=== PATIENT | female | born 2000 | race Caucasian/White ===

== ENCOUNTER 2020-06-10 00:47 | Emergency (ER) | payer OTHER ==
[~2020-06-10] VITALS: Ht 172.7 cm; Wt 81.6 kg
[2020-06-10] MEDS ORDERED: LIDOCAINE VISC 2% SOLN 15 ML UDC ONE (01:01)
--- NOTE | 2020-06-10 01:08 | NUR ---
TRANSFER INITIATED TO [facility], SPOKE TO [place] KC RN
[2020-06-10 01:32] LABS: BASOPHILS # (AUTO) 0.1 (0.0-0.1); BASOPHILS % 0.5 % (0.0-1.0); EOSINOPHILS # (AUTO) 0.1 (0.0-0.4); EOSINOPHILS % 0.6 % (0.0-6.0); HEMOGLOBIN 12.9 g/dL (12.0-16.0); LYMPHOCYTES # (AUTO) 4.3 (1.0-3.2); LYMPHOCYTES % 29.7 % (18.0-39.1); MEAN CORPUSCULAR HEMOGLOBIN 27.8 pg (28-32); MEAN CORPUSCULAR HGB CONC 31.5 g/dL (31-35); MEAN CORPUSCULAR VOLUME 88.4 fL (81-99); MONOCYTES # (AUTO) 0.7 (0.2-0.8); NEUTROPHILS # (AUTO) 9.3 (2.1-6.9); NEUTROPHILS % 63.8 % (38.7-80.0); PLATELET COUNT 471 x10e3/uL (140-360); RED BLOOD COUNT 4.64 x10e6/uL (3.6-5.1)
--- NOTE | 2020-06-10 01:34 | Emergency Department Note ---
History of Present Illnes History of Present Illness Chief Complaint: Eye, Ear, Nose, Throat, Dental History of Present Illness This is a 19 year old female Chief Complaint Comment 19 Y/O FEMALE PT AAOX3 REPORTS SYNCOPE EPISODE APPROX 30 MINUTES AGO AND STRUCK MOUTH ON SIDE OF SHOWER; LEFT CENTRAL INCISOR TO UPPER JAW ABSENT, RIGHT CENTRAL INCISOR NOTED WITH IMPACTION TO LOWER JAW; 1 CM LACERATION NOTED TO BOTTOM LIP X2. Historian: Patient Arrival Mode: Car [employer] Required: No Onset (how long ago): minute(s) (15) Location: Teeth Quality: Subluxed Radiation: Reports non-radiation Severity: moderate Onset quality: sudden Duration (how long): hour(s) (1) Timing of current episode: constant Progression: unchanged Chronicity: new Context: Denies recent illness, Denies recent surgery Relieving factors: none Exacerbating factors: none Associated symptoms: Reports denies other symptoms Treatments prior to arrival: none Past Medical/Family History Physician Review I have reviewed the patient's past medical and family history. Any updates have been documented here. Past Medical History Recent Fever: No Clinical Suspicion of Infectio: No New/Unexplained Change in Ment: No Past Medical History: None Past Surgical History: None Review of Systems Review of Systems Constitutional: Reports no symptoms EENTM: Reports as per HPI, Reports mouth pain Cardiovascular: Reports no symptoms Respiratory: Reports no symptoms Gastrointestinal: Reports no symptoms Genitourinary: Reports no symptoms Musculoskeletal: Reports no symptoms Integumentary: Reports no symptoms Neurological: Reports no symptoms Psychological: Reports no symptoms Endocrine: Reports no symptoms Hematological/Lymphatic: Reports no symptoms Physical Exam Related Data Allergies: Coded Allergies: No Known Allergies (Unverified , 06/10/20) Triage Vital Signs Vital Signs Date Time Temp Pulse Resp B/P (MAP) Pulse Ox O2 Delivery O2 Flow Rate FiO2 06/10/20 00:49 98.2 102 18 110/62 99 Room Air Vital signs reviewed: Yes Physical Exam CONSTITUTIONAL Constitutional: Present well-developed, Present well-nourished HENT HENT: Present normocephalic, Present oropharynx clear/moist, Present nose normal, Present other (Abrasion to L medial brow. Tooth 9 completely subluxed, 8 is impacted, 10 is loose. Bottom lip has small laceration) HENT L/R: Present left ext ear normal, Present right ext ear normal EYES Eyes: Reports PERRL, Reports conjunctivae normal NECK Neck: Present ROM normal PULMONARY Pulmonary: Present effort normal, Present breath sounds normal CARDIOVASCULAR Cardiovascular: Present regular rhythm, Present heart sounds normal, Present capillary refill normal, Present normal rate GASTROINTESTINAL Abdominal: Present soft, Present nontender, Present bowel sounds normal GENITOURINARY Genitourinary: Present exam deferred SKIN Skin: Present warm, Present dry MUSCULOSKELETAL Musculoskeletal: Present ROM normal NEUROLOGICAL Neurological: Present alert, Present oriented x 3, Present no gross motor or sensory deficits PSYCHOLOGICAL Psychological: Present mood/affect normal, Present judgement normal Procedures 12 Lead ECG Interpretation ECG Interpretation : [employer] Ranger: Interpreted by ED physician Date: Jun 10, 2020 Rhythm: sinus rhythm Rate: normal QRS axis: normal ST segments normal: Yes T waves normal: Yes Clinical Impression: normal ECG Assessment & Plan Medical Decision Making MDM 19-year-old female presents for 2 subluxation. Exam is significant for left incisor completely subluxed, left lateral incisor is loose, right incisor is impacted and overriding the left incisor socket. Tooth was stored in milk. CT head/maxillofacial performed which note the above injuries. Will not be able to replace tooth 2/2 the adjacent tooth overriding the socket. Discussed patient with Dr. Montalvo with [facility] at [facility] and will transfer for definitive management. Patient is appropriate for transfer. Assessment & Plan Final Impression: (1) Subluxation of tooth Depart Disposition: TRANS TO OTHER [facility] Last Vital Signs Date Time Temp Pulse Resp B/P (MAP) Pulse Ox O2 Delivery O2 Flow Rate FiO2 06/10/20 00:49 98.2 102 18 110/62 99 Room Air Medications in the ED Lidocaine HCl 30 ml STK-MED ONCE .ROUTE ; Start 06/10/20 at 01:01; Stop 06/10/20 at 00:54; Status DC CHAPINCITO CONLEY MD Jun 10, 2020 01:34
[2020-06-10] MEDS ORDERED: MORPHINE SULFATE INJ 4 MG/ML INJ 1ML IV STA (01:47)
--- NOTE | 2020-06-10 01:50 | NUR ---
PT DEPARTED FACILITY VIA EMS WITH NAD NOTED
[2020-06-10 01:51] LABS: ALANINE AMINOTRANSFERASE 10 IU/L (0-55); ALBUMIN 4.5 g/dL (3.5-5.0); ALBUMIN/GLOBULIN RATIO 1.4 (0.8-2.0); ALKALINE PHOSPHATASE 69 IU/L (40-150); ANION GAP 14.3 mmol/L (8-16); BLOOD UREA NITROGEN 9 mg/dL (7-26); BUN/CREATININE RATIO 11 (6-25); CALCIUM 9.1 mg/dL (8.4-10.2); CARBON DIOXIDE 26 mmol/L (22-29); CHLORIDE 103 mmol/L (98-107); CREATININE, SERUM 0.83 mg/dL (0.57-1.11); EST GLOMERULAR FILTRATION RATE > 60 ML/MIN (60-); GLUCOSE 120 mg/dL (74-118); LIPASE 37 U/L (8-78); POTASSIUM 3.3 mmol/L (3.5-5.1); SODIUM 140 mmol/L (136-145)
[2020-06-10] MEDS ORDERED: MORPHINE SULFATE 2 MG/ML SYR 1ML ONE (01:58)
--- NOTE | 2020-06-10 01:59 | Diagnostic Imaging Report ---
History:Status post fall. Comparison studies: None Technique: Axial images were obtained through the maxillofacial region. Coronal and sagittal images reconstructed from the axial data. Dose modulation, iterative reconstruction, and/or weight based adjustment of the mA/kV was utilized to reduce the radiation dose to as low as reasonably achievable. Intravenous contrast: None Findings: Soft tissues: Moderate upper lip and premaxillary soft tissue edema/hematoma and soft tissue emphysema. No radiopaque foreign body. Small, focal superficial laceration in right lower lip. Bones: Acute comminuted fracture of the anterior maxilla along the alveolar margin. Traumatic avulsion of left maxillary central incisor and posttraumatic subluxation of right maxillary central incisor with associated small chip fracture along its crown. Orbits: Globes: Intact Extra or intraconal abnormalities: None. Paranasal sinuses: Clear IMPRESSION: 1. Moderate upper lip/premaxillary soft tissue edema/hematoma and laceration. Focal superficial laceration in right lower lip. 2. Acute comminuted fracture of anterior maxilla along the alveolar margin. 3. Traumatic avulsion of left maxillary central incisor. 4. Subluxation of right maxillary central incisor with chip fracture of the crown. Signed by: Dr. Lidia Timmons M.D. on 06/10/2020 1:56 AM
--- NOTE | 2020-06-10 02:02 | Diagnostic Imaging Report ---
EXAMINATION: Head CT without contrast. HISTORY:Trauma, fall. COMPARISON:None. TECHNIQUE: Multidetector axial images were obtained from the foramen magnum to the vertex without contrast. The images were reconstructed using brain and bone algorithms. Thin section brain images were reformatted into coronal and sagittal planes. Dose modulation, iterative reconstruction, and/or weight based adjustment of the mA/kV was utilized to reduce the radiation dose to as low as reasonably achievable. Intravenous contrast: None IMAGE QUALITY: Suboptimal evaluation particularly at the level of skull base and posterior fossa structures due to streak artifacts. FINDINGS: Skull/scalp: No lytic or blastic. lesions. No surgical changes. Parenchyma: No abnormal density. No acute hemorrhage, mass or acute major vascular territorial infarct. Arteries: No density suggestive of thrombosis. Dural sinuses: No abnormal density suggestive of thrombosis. Ventricles: No hydrocephalus or displacement. Extra-axial spaces: No abnormal density. Brain volume: Normal for age. Craniocervical junction: No mass, Chiari malformation, or basilar invagination. Sella: No mass. Paranasal/mastoid sinuses: Imaged portions unremarkable. IMPRESSION: No intracranial abnormality. Signed by: Dr. Lidia Timmons M.D. on 06/10/2020 1:59 AM
--- NOTE | 2020-06-10 02:03 | NUR ---
tooth remains in bottle on milk. bottle placed in biohazard bag and given to bench grinder.
== END 2020-06-10 02:05 | disposition other institution (70) ==
LOC: ER 00:59
DX: S03.2XXA Dislocation of tooth, initial encounter (principal)
CPT/HCPCS: 36415; 70450; 70486; 80053; 83690; 84702; 85025; 93005; 99284; J2270